=== PATIENT | male | born 1960 | race Caucasian/White ===

== ENCOUNTER 2021-02-21 01:43 | Emergency (ER) | payer OTHER ==
[2021-02-21] MEDS ORDERED: Lidocaine 1% PF 2 ML SDV INJECT ONE (01:44)
[2021-02-21] MEDS ORDERED: traMADol 50 MG Tab PO ONE (01:44)
[2021-02-21] MEDS ORDERED: Propofol 200 MG/20 ML SDV IV ONE (01:44)
[2021-02-21] MEDS ORDERED: fentaNYL 100 MCG/2 ML SDV IVPUSH ONE (02:40)
--- NOTE | 2021-02-21 02:45 | EDM.PDOC ---
ED HPI GENERAL MEDICAL PROBLEM - General Chief Complaint: Upper Extremity Injury/Pain Stated Complaint: SHOULDER PAIN Time Seen by Provider: 02/21/21 02:42 Source of Information: Reports: Patient History Limitations: Reports: No Limitations - History of Present Illness INITIAL COMMENTS - FREE TEXT/NARRATIVE: Rad fell at work and injured his right shoulder. Complains of severe pain. RIGHT SHOULDER Pain Score (Numeric/FACES): 10 - Related Data Allergies Allergy/AdvReac Type Severity Reaction Status Date / Time No Known Allergies Allergy Verified 02/21/21 01:58 Home Meds: Home Meds Celecoxib [CeleBREX] 200 mg PO DAILY 12/22/13 [History] Naproxen Sodium [Aleve] 440 mg PO Q4H PRN 12/22/13 [History] Tadalafil [Cialis] 10 mg PO ASDIRECTED PRN 12/22/13 [History] Social & Family History - Tobacco Use Tobacco Use Status *Q: Never Tobacco User - Caffeine Use Caffeine Use: Reports: None - Recreational Drug Use Recreational Drug Use: No Review of Systems - Review of Systems Review Of Systems: Comprehensive ROS is negative, except as noted in HPI. ED EXAM, GENERAL - Physical Exam Exam: See Below Exam Limited By: No Limitations General Appearance: Alert, WD/WN, Mild Distress Ear Exam: Bilateral Ear: Auricle Normal, Canal Normal, TM normal Extremities: Limited Range of Motion. No: Normal Range of Motion Neurological: Alert Psychiatric: Normal Affect ED TRAUMA EXTREMITY PROCEDURES - Additional/Other Procedure(s) Other (Free Text) Procedure(s): Right shoulder dislocation reduction was successfully done after conscious sedation.Post reduction images reviewed. Course - Vital Signs Last Recorded V/S: Last Vital Signs Temp 97.1 F 02/21/21 01:45 Pulse 70 02/21/21 02:30 Resp 18 02/21/21 02:30 BP 144/79 H 02/21/21 02:30 Pulse Ox 98 02/21/21 02:30 - Orders/Labs/Meds Meds: Medications Discontinued Medications Generic Name Dose Route Start Last Admin Trade Name Freq PRN Reason Stop Dose Admin Fentanyl 100 mcg 02/21/21 02:40 Fentanyl 100 Mcg/2 Ml Sdv IVPUSH 02/21/21 02:41 ONETIME ONE Hydromorphone HCl 2 mg 02/21/21 02:47 02/21/21 02:50 Hydromorphone 2 Mg/Ml Sdv IM 02/21/21 02:48 2 mg ONETIME ONE Administration Hydromorphone HCl Confirm 02/21/21 02:47 02/21/21 02:45 Hydromorphone 2 Mg/Ml Sdv Administered 02/21/21 02:48 Not Given Dose 2 mg .ROUTE .STK-MED ONE Lidocaine HCl 2 ml 02/21/21 01:44 Lidocaine 1% Pf 2 Ml Sdv INJECT 02/21/21 01:45 .STK-MED ONE Propofol 170 mg 02/21/21 01:44 Propofol 200 Mg/20 Ml Sdv IV 02/21/21 01:45 .STK-MED ONE Tramadol HCl 200 mg 02/21/21 01:44 Tramadol 50 Mg Tab PO 02/21/21 01:45 .STK-MED ONE Departure - Departure Time of Disposition: 08:15 Disposition: Home, Self-Care 01 Condition: Good Clinical Impression: Sprain of shoulder Shoulder fracture Qualifiers: Encounter type: initial encounter Laterality: right Shoulder dislocation Qualifiers: Encounter type: initial encounter Laterality: right Qualified Code(s): S43.004A - Unspecified dislocation of right shoulder joint, initial encounter - Discharge Information Instructions: Shoulder Dislocation, How to Use a Shoulder Immobilizer Referrals: Garrett Lange MD [Primary Care Provider] - Forms: ED Department Discharge Care Plan Goals: Follow up on Thursday with Dr. Lange, please make this appt. Sepsis Event Note (ED) - Evaluation Sepsis Screening Result: No Definite Risk - Problem List & Annotations (1) Shoulder dislocation SNOMED Code(s): 253352194, 206689124 Code(s): S43.006A - UNSP DISLOCATION OF UNSPECIFIED SHOULDER JOINT, INIT ENCNTR Status: Acute Qualifiers: Encounter type: initial encounter Laterality: right Qualified Code(s): S43.004A - Unspecified dislocation of right shoulder joint, initial encounter (2) Shoulder fracture SNOMED Code(s): 94851357926452345 Code(s): S42.90XA - FRACTURE OF UNSP SHOULDER GIRDLE, PART UNSP, INIT Status: Acute Qualifiers: Encounter type: initial encounter Laterality: right - Problem List Review Problem List Initiated/Reviewed/Updated: Yes - Assessment/Plan Plan: Attempt at reduction-done successfully! Shoulder immobilizer placed.Follow up on Thursday
[2021-02-21] MEDS ORDERED: HYDROmorphone 2 MG/ML SDV ONE (02:47)
[2021-02-21] MEDS ORDERED: HYDROmorphone 2 MG/ML SDV IM ONE (02:47)
[2021-02-21 05:30] VITALS: BP 144/79; PULSE 70
== END 2021-02-21 04:15 | disposition home or self-care (01) ==
LOC: FB.ED 01:43
DX: S43.014A Anterior dislocation of right humerus, initial encounter (principal); S43.401A Unspecified sprain of right shoulder joint, initial encounter; W19.XXXA Unspecified fall, initial encounter; Y99.0 Civilian activity done for income or pay
CPT/HCPCS: 01620-QZ; 23650; 73020-RT; 73030-RT; 99000; 99282; 99283-25; A9270-GY; J1170; J2704